=== PATIENT | female | born 1940 | race Caucasian/White ===

== ENCOUNTER 2021-04-09 00:52 | Observation (INO) ==
[2021-04-09] MEDS ORDERED: MECLIZINE 25 MG TABLET PO ONE ×2 (01:05→14:58)
--- NOTE | 2021-04-09 01:09 | Emergency Department Note ---
Fall HPI General Chief Complaint: Fall Stated Complaint: Fall Time Seen by Provider: 04/09/21 00:54 Source: patient and EMS Mode of arrival: EMS History of Present Illness HPI Narrative: Narrative: Presents to room T4 via EMS for evaluation of fall with possible head injury. The patient reports that she got up and had a fall. She denies passing out but states that she is dizzy and feels nauseated. She states after she fell she called the other room and called EMS initially for lift assist. She was noted to have elevated blood sugar and with her symptoms she requested transport to the hospital for further evaluation. She denies any headache or blurred vision. She denies any neck pain. She does report some pain in the lower back. She also reports some pain in the hips bilaterally. She denies any extremity trauma. No focal motor weakness or sensory numbness. She denies chest pain, palpitations or shortness of breath. No abdominal pain. She denies flank pain or dysuria. No fevers or chills. symptoms are constant. She denies any exacerbating or alleviating factors. Related Data Home Medications Medication Instructions Recorded Confirmed insulin glargine 30 unit SQ DAILY 02/26/17 07/16/19 levothyroxine 50 mcg PO DAILY 02/26/17 08/17/20 insulin lispro 0 unit SQ QHS 05/20/18 07/16/19 magnesium oxide [Magox 400] 400 mg PO QAM 05/20/18 06/18/18 multivitamin 1 each PO DAILY 05/20/18 07/16/19 potassium chloride [Klor-Con 10 meq PO QAM 05/20/18 06/18/18 Sprinkle] atorvastatin 80 mg PO QDAY 08/17/20 08/17/20 cefdinir 300 mg PO BID 08/17/20 08/17/20 cephalexin 500 mg PO BID 08/17/20 08/17/20 insulin degludec [Tresiba 30 unit SUBCUT QDAY 08/17/20 08/17/20 FlexTouch U-100] isosorbide mononitrate 10 mg PO QDAY 08/17/20 08/17/20 lisinopril 10 mg PO QDAY 08/17/20 08/17/20 omeprazole magnesium [Acid Inside Sales Administrator 20 mg PO QDAY 08/17/20 08/17/20 (omeprazole)] ticagrelor [Brilinta] 90 mg PO BID 08/17/20 08/17/20 Previous Rx's Medication Instructions Recorded methocarbamol 750 mg PO TIDP PRN #8 tab 10/10/18 valacyclovir 1,000 mg PO TID #21 tab 01/14/20 fluconazole 100 mg PO DAILY #5 tab 02/17/20 Allergies Allergy/AdvReac Type Severity Reaction Status Date / Time hydrocodone Allergy Nausea Verified 04/09/21 01:00 Review of Systems ROS ROS Narrative: Narrative: All systems ED: reviewed and negative except as stated. [facility] Narrative Patient History Narrative: Narrative: Medical/Surgical/Family History All Active Problems (Updated 04/09/21 @ 06:57 by Reagan Richards MD) Benign paroxysmal positional vertigo (Acute) Shingles of eyelid (Acute) Falls frequently (Acute) Hydrocephalus in adult (Acute) UTI (urinary tract infection) (Acute) Chest pain (Acute) Candidal UTI (urinary tract infection) (Acute) CAD (coronary artery disease) (Acute) Hypothyroidism (Acute) Acute alteration in mental status (Acute) Urogenital candidiasis (Acute) Bradycardia (Acute) Fall (Acute) Diabetes mellitus out of control (Acute) Lumbar contusion (Acute) Diabetes mellitus type 2, uncontrolled, with complications (Chronic) Hyperglycemia due to type 2 diabetes mellitus (Chronic) Non-adherence to medical treatment (Chronic) Self-care deficit for medication administration (Chronic) S/P PLANT ANATOMY TEACHER shunt (Chronic) CRF (chronic renal failure) (Chronic) Weakness (Acute) Hyperglycemia (Acute) Ketonuria (Acute) Medical History (Updated 04/09/21 @ 06:57 by Reagan Richards MD) Chest pain Confusion CRF (chronic renal failure) Diabetes mellitus type 2, uncontrolled, with complications Hyperglycemia due to type 2 diabetes mellitus Non-adherence to medical treatment Non-cardiac chest pain Self-care deficit for medication administration Supraventricular bigeminy Urinary tract infection Surgical History S/P PLANT ANATOMY TEACHER shunt Social History Smoking Status: Never smoker Exam Narrative Narrative: Narrative: General General appearance: Present alert and in no apparent distress Head Head: Present atraumatic, normocephalic and normal inspection Eye Eye: Present normal appearance, PERRL and EOMI; Absent conjunctival injection ENT ENT: Present normal exam and mucous membranes moist Neck Neck: Present normal inspection, full ROM and trachea midline; Absent tenderness Respiratory Respiratory: Present normal lung sounds bilaterally; Absent respiratory distress Cardiovascular Cardiovascular: Present regular rate, normal rhythm and normal heart sounds Adbominal Abdominal: Present soft; Absent distention, tenderness, guarding and rebound Extremities Extremities: Present normal inspection; Absent tenderness Back Back: Present normal inspection and tenderness (Mild diffuse tenderness to palpation in the lumbar spine without step-offs or point tenderness.) Neurological Neurological: Present alert, oriented X3 and CN II-XII intact; Absent motor sensory deficit Psychiatric Psychiatric: Present normal affect and normal mood Skin Skin: Present warm (WNL) and dry; Absent rash Course Vital Signs Vital signs: Vital Signs Temperature 97.1 F 04/09/21 00:53 Pulse Rate 69 04/09/21 00:53 Respiratory Rate 18 04/09/21 00:53 Blood Pressure 133/67 04/09/21 00:53 Pulse Oximetry (%) 95 04/09/21 00:53 Temperature 97.1 F 04/09/21 00:53 Pulse Rate 62 04/09/21 06:31 Respiratory Rate 18 04/09/21 00:53 Blood Pressure 109/41 04/09/21 06:31 Pulse Oximetry (%) 97 04/09/21 06:31 [facility] MDM Narrative Medical decision making narrative: Narrative: Patient presents via EMS for evaluation of fall. The patient does have a history of benign positional vertigo per her medical record. She also takes Antivert. She states today she became dizzy and this may have contributed to her fall. The patient is awake and alert and has no significant symptoms other than discomfort over her lower back and hips. The patient had a head CT which showed no evidence of intracranial trauma. X-rays of the chest, lumbar spine and pelvis showed no acute injuries. The patient does have an elevated blood sugar at 434. There is no signs of acidosis or significant ketosis. The patient's blood sugar was treated with IV fluids. She was also given an initial dose of subcu insulin however this did not significantly improve her blood sugar. She subsequent was given a dose of IV insulin and her blood sugar did improve to 282. The patient was also treated with a dose of oral Antivert and her dizziness initially resolved. Later in the emergency department course she did report some nausea and dizziness returning this was treated with IV Zofran. The patient has remained comfortable from that point forward. The patient does have a mild elevation of the BUN and creatinine however this does appear to be baseline per her medical record. I do have concerns the patient may not be able to adequately care for herself. We will keep her under observation in the emergency department until case management can review her living situation and determine whether she is safe to be discharged home or may benefit from placement. I have asked the oncoming physician to follow-up on her disposition. Lab Data Lab results reviewed: Yes I reviewed the patient's lab results. Result diagrams: 04/09/21 01:45 04/09/21 01:45 Labs: Lab Results 04/09/21 04/09/21 04/09/21 Range/Units 01:45 01:45 01:45 WBC 6.7 (4.5-11.0) K/mcL RBC 4.27 (4.00-5.20) M/mcL Hgb 12.2 (12.0-15.0) g/dL Hct 37.8 (36.0-48.0) % MCV 88.5 (80.0-100.0) fL MCH 28.6 (26.0-34.0) pg MCHC 32.3 (31.0-36.0) g/dL RDW 12.8 (11.5-14.5) % Plt Count 228 (140-440) K/mcL MPV 10.7 H (7.4-10.4) fL Neut % (Auto) 67.9 (38.0-78.0) % Lymph % (Auto) 22.0 (15.0-49.0) % [place] % (Auto) 5.8 (1.0-12.0) % Eos % (Auto) 3.3 (0.0-7.0) % Baso % (Auto) 1.0 (0.0-2.0) % Lymph # (Auto) 1.48 L (1.50-4.80) K/mcL [place] # (Auto) 0.39 (0.10-0.90) K/mcL Eos # (Auto) 0.22 (0.00-0.70) K/mcL Baso # (Auto) 0.07 (0.00-0.20) K/mcL Absolute Neutrophils 4.58 (1.80-8.00) K/mcL Sodium 132 L (133-145) mmol/L Potassium 3.4 (3.3-5.1) mmol/L Chloride 97 (96-108) mmol/L Carbon Dioxide 24 (22-30) mmol/L Anion Gap 11.0 (8.0-16.0) BUN 26 H (8-23) mg/dL Creatinine 1.4 H (0.6-1.1) mg/dL GFR Calculation 35 Glucose 434 H (70-105) mg/dL Calcium 9.2 (8.6-10.4) mg/dL Total Bilirubin 0.3 (0.1-1.0) mg/dL AST 13 (<32) U/L ALT 13 (<40) U/L Alkaline Phosphatase 129 H (39-117) U/L Troponin T < 0.01 (<0.03) ng/mL Total Protein 6.5 (5.9-8.4) gm/dL Albumin 3.8 (3.2-5.2) gm/dL Globulin 2.7 (2.2-3.7) gm/dL Albumin/Globulin Ratio 1.4 (1.0-2.3) Urine Color Urine Appearance (Clear) Urine pH (5.0-9.0) Ur Specific [place] (1.000-1.035) Urine Protein (Negative) mg/dL Urine Glucose (UA) (Negative) mg/dL Urine Ketones (Negative) mg/dL Urine Occult Blood (Negative) mg/dL Urine Nitrate (Negative) Urine Bilirubin (Negative) mg/dL Urine Urobilinogen mg/dL Ur Leukocyte Esterase (Negative) /ug Urine RBC (0-3) /hpf Urine WBC (0-4) /hpf Ur Squamous Epith Cells (0-4) /hpf Ur Transition Epith Cell (0-2) /hpf Urine Bacteria (0) /hpf Urine Mucus (None) /hpf Urine Yeast (Budding) (None) /hpf Ur Culture Indicated? 04/09/21 Range/Units 03:07 WBC (4.5-11.0) K/mcL RBC (4.00-5.20) M/mcL Hgb (12.0-15.0) g/dL Hct (36.0-48.0) % MCV (80.0-100.0) fL MCH (26.0-34.0) pg MCHC (31.0-36.0) g/dL RDW (11.5-14.5) % Plt Count (140-440) K/mcL MPV (7.4-10.4) fL Neut % (Auto) (38.0-78.0) % Lymph % (Auto) (15.0-49.0) % [place] % (Auto) (1.0-12.0) % Eos % (Auto) (0.0-7.0) % Baso % (Auto) (0.0-2.0) % Lymph # (Auto) (1.50-4.80) K/mcL [place] # (Auto) (0.10-0.90) K/mcL Eos # (Auto) (0.00-0.70) K/mcL Baso # (Auto) (0.00-0.20) K/mcL Absolute Neutrophils (1.80-8.00) K/mcL Sodium (133-145) mmol/L Potassium (3.3-5.1) mmol/L Chloride (96-108) mmol/L Carbon Dioxide (22-30) mmol/L Anion Gap (8.0-16.0) BUN (8-23) mg/dL Creatinine (0.6-1.1) mg/dL GFR Calculation Glucose (70-105) mg/dL Calcium (8.6-10.4) mg/dL Total Bilirubin (0.1-1.0) mg/dL AST (<32) U/L ALT (<40) U/L Alkaline Phosphatase (39-117) U/L Troponin T (<0.03) ng/mL Total Protein (5.9-8.4) gm/dL Albumin (3.2-5.2) gm/dL Globulin (2.2-3.7) gm/dL Albumin/Globulin Ratio (1.0-2.3) Urine Color Straw Urine Appearance Hazy A (Clear) Urine pH 5.0 (5.0-9.0) Ur Specific [place] 1.022 (1.000-1.035) Urine Protein Negative (Negative) mg/dL Urine Glucose (UA) >=500 A (Negative) mg/dL Urine Ketones Negative (Negative) mg/dL Urine Occult Blood Negative (Negative) mg/dL Urine Nitrate Negative (Negative) Urine Bilirubin Negative (Negative) mg/dL Urine Urobilinogen Negative mg/dL Ur Leukocyte Esterase 25 A (Negative) /ug Urine RBC 1 (0-3) /hpf Urine WBC 27 H (0-4) /hpf Ur Squamous Epith Cells 4 (0-4) /hpf Ur Transition Epith Cell < 1 (0-2) /hpf Urine Bacteria None (0) /hpf Urine Mucus Few A (None) /hpf Urine Yeast (Budding) Few A (None) /hpf Ur Culture Indicated? yes EKG Data EKG #1: EKG attestation: Yes I reviewed and interpreted this EKG., Yes There are no EKG findings of acute coronary syndrome and Yes This EKG will be read by airplane first officer EKG results narrative: Normal sinus rhythm, rate 68, left anterior fascicular block, no ectopy, no normal QRS Rhythm Strip Data Rhythm Strip Rate: 70 Interpretation: Normal sinus rhythm Pulse Oximetry Data Pulse Ox %: 97 Interpretation: Normal, room air Discharge Plan Patient/Caregiver Discharge Instructions Pt seen by DRESSMAKER HELPER/PA only: No Clinical Impression: Fall, Diabetes mellitus out of control, Lumbar contusion Patient Disposition: Still a Patient Follow up with: Kavya Farris MD [Primary Care Provider] - Prescriptions: No Action insulin glargine 1 UNIT/0.01 ML unit 30 unit SQ DAILY RF: 0 levothyroxine 50 MCG tablet 50 mcg PO DAILY RF: 0 multivitamin 1 EACH tablet 1 each PO DAILY RF: 0 potassium chloride [Klor-Con Sprinkle] 10 MEQ capsule, extended release 10 meq PO QAM RF: 0 magnesium oxide [MagOx] 400 MG tablet 400 mg PO QAM RF: 0 insulin lispro 1 UNIT/0.01 ML unit 0 unit SQ QHS RF: 0 methocarbamol 750 MG tablet 750 mg PO TIDP PRN (Reason: Spasms) Qty: 8 RF: 0 valacyclovir 1,000 MG tablet 1,000 mg PO TID Qty: 21 RF: 0 fluconazole 100 MG tablet 100 mg PO DAILY Qty: 5 RF: 0 cefdinir 300 mg Capsule 300 mg PO BID RF: 0 Tresiba FlexTouch U-100 100 unit/mL (3 mL) Insulin Pen 30 unit SUBCUT QDAY RF: 0 isosorbide mononitrate 10 mg Tablet 10 mg PO QDAY RF: 0 atorvastatin 80 mg Tablet 80 mg PO QDAY RF: 0 Brilinta 90 mg Tablet 90 mg PO BID RF: 0 omeprazole magnesium [Acid Inside Sales Administrator (omeprazole)] 20 mg Capsule,Delayed Release(Dr/Ec) 20 mg PO QDAY RF: 0 lisinopril 10 mg Tablet 10 mg PO QDAY RF: 0 cephalexin 500 mg Capsule 500 mg PO BID RF: 0
[2021-04-09] MEDS: 0.9 % SODIUM CHLORIDE 1,000 ML IV SCH ×3 (02:06→14:40)
[2021-04-09 02:27] LABS: Basophils # (Auto) 0.07 K/mcL (0.00-0.20); Eosinophils # (Auto) 0.22 K/mcL (0.00-0.70); Eosinophils % (Auto) 3.3 % (0.0-7.0); Hematocrit 37.8 % (36.0-48.0); Hemoglobin 12.2 g/dL (12.0-15.0); Lymphocytes # (Auto) 1.48 K/mcL (1.50-4.80); Mean Cell Volume 88.5 fL (80.0-100.0); Mean Corpuscular HGB Conc 32.3 g/dL (31.0-36.0); Mean Platelet Volume 10.7 fL (7.4-10.4); Monocytes # (Auto) 0.39 K/mcL (0.10-0.90); Monocytes % (Auto) 5.8 % (1.0-12.0); Neutrophils % (Auto) 67.9 % (38.0-78.0); Platelet Count 228 K/mcL (140-440); RBC 4.27 M/mcL (4.00-5.20); Red Cell Distribution Width 12.8 % (11.5-14.5); WBC 6.7 K/mcL (4.5-11.0)
--- NOTE | 2021-04-09 02:46 | XRay Report ---
CLINICAL INFORMATION: fall injury COMPARISON: None. FINDINGS: No fracture or other osseous abnormality identified. Mild degenerative change seen in both SI and hip joints. Multiple pelvic calcifications likely represent phleboliths and/or granulomas. The distal end of a BACK CLOSER shunt catheter seen over the right false pelvis. IMPRESSION: No fracture or other posttraumatic change Interpreted and Authenticated by: Darryl Silva 04/09/21
--- NOTE | 2021-04-09 02:48 | XRay Report ---
CLINICAL INFORMATION: Trauma-fall COMPARISON: 03/22/2021 TECHNIQUE: Portable FINDINGS: The heart size, mediastinum and pulmonary vessels are unremarkable. The lungs are clear. There are no effusions. The bones and soft tissues are within normal limits. IMPRESSION: Normal chest. Interpreted and Authenticated by: Darryl Silva 04/09/21
[2021-04-09 02:49] LABS: ALT/SGPT 13 U/L (<40); AST/SGOT 13 U/L (<32); Albumin 3.8 gm/dL (3.2-5.2); Albumin/Globulin Ratio 1.4 (1.0-2.3); Alkaline Phosphatase 129 U/L (39-117); Bilirubin,Total 0.3 mg/dL (0.1-1.0); Blood Urea Nitrogen 26 mg/dL (8-23); Calcium 9.2 mg/dL (8.6-10.4); Carbon Dioxide 24 mmol/L (22-30); Chloride 97 mmol/L (96-108); Globulin 2.7 gm/dL (2.2-3.7); Glomerular Filtration Rate 35; Glucose 434 mg/dL (70-105)
--- NOTE | 2021-04-09 02:50 | XRay Report ---
CLINICAL INFORMATION: fall injury COMPARISON: 10/10/2018 FINDINGS: Lumbar spine is normal in curvature and alignment. No fracture or other osseous abnormality appreciated. Severe L5-S1 degenerative disc and facet disease is unchanged. No significant soft tissue abnormality IMPRESSION: No fracture. Severe L5-S1 degenerative disc and facet disease that stable Interpreted and Authenticated by: Darryl Silva 04/09/21
[2021-04-09] MEDS ORDERED: INSULIN REGULAR, HUMAN 1 UNIT/0.01 ML UNIT SQ ONE (03:07)
[2021-04-09] MEDS ORDERED: NAPROXEN 250 MG TABLET PO ONE (03:10)
--- NOTE | 2021-04-09 03:10 | Cat Scan Report ---
CLINICAL INFORMATION: Trauma-fall COMPARISON: None. TECHNIQUE: 2.5 mm helical slices were obtained in the skull base to vertex. Following reconstruction, axial reformatted images were reviewed at bone and parenchymal windows. The exam was performed using radiation dose optimization techniques including, but not limited to, automated exposure control, adjustment of the mA and/or kV according to patient size and use of iterative reconstruction technique. FINDINGS: The ventricles, sulci, fissures, and cisterns are symmetrically enlarged consistent with moderate age-related atrophy-no change from previous exam. 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 No extra-axial hemorrhage. The SOFTWARE ENGINEER BACKEND shunt catheter enters the right frontal craniotomy extends through the left frontal lobe into the frontal horn of the right lateral ventricle-no change in position. No evidence of recurrent hydrocephalus. Moderate patchy chronic ischemic changes in the deep cerebral white matter are stable and expected for age. 6 mm remote lacunar infarct in the right caudate nucleus head, a few few punctate remote lacunar infarcts in basal ganglia and 11 mm remote lacunar infarct in the superior right cerebellar vermis are all stable. There is no intracerebral hemorrhage, mass effect or edema. Bone windows show no osseous abnormality. IMPRESSION: No intracerebral hemorrhage or posttraumatic change. Other chronic findings-stable Interpreted and Authenticated by: Darryl Silva 04/09/21
[2021-04-09 04:05] LABS: Appearance,Urine HAZY (Clear); Bilirubin,Urine Negative (Negative); Color,Urine STRAW; Culture Indicated,Urine yes; Glucose,Urine (UA) >=500 mg/dL (Negative); Ketones,Urine Negative (Negative); Leukocyte Esterase,Urine 25 /ug (Negative); Mucus,Urine FEW /hpf; Nitrate,Urine Negative (Negative); Protein,Urine Negative (Negative); Specific Gravity,Urine 1.022 (1.000-1.035); Urine Blood Negative (Negative); Urine Budding Yeast FEW /hpf; Urine RBC 1 /hpf (0-3); Urine Squamous Epithelial Cell 4 /hpf (0-4); Urine Transitional Epi Cells < 1 /hpf (0-2); Urine WBC 27 /hpf (0-4); Urobilinogen,Urine Negative
[2021-04-09] MEDS ORDERED: INSULIN REGULAR, HUMAN 1 UNIT/0.01 ML UNIT IV ONE (04:15)
[2021-04-09] MEDS ORDERED: ONDANSETRON 4 MG/2 ML VIAL IV ONE (05:28)
[2021-04-09] MEDS ORDERED: PROCHLORPERAZINE 10 MG/2 ML VIAL IV ONE ×2 (07:28→14:58)
[2021-04-09] MEDS ORDERED: morphine 2 MG/ML VIAL IV ONE (08:04)
[2021-04-09] MEDS ORDERED: cefTRIAXone 1 GM VIAL IV ONE (08:04)
[2021-04-09] MEDS ORDERED: diphenhydrAMINE 50 MG/ML VIAL IV ONE ×2 (08:04→14:58)
--- NOTE | 2021-04-09 08:12 | Emergency Department Note ---
Fall HPI General Chief Complaint: Fall Stated Complaint: Fall Time Seen by Provider: 04/09/21 00:54 Source: patient, family, EMS, RN notes reviewed and old records reviewed Mode of arrival: EMS Limitations: no limitations History of Present Illness HPI Narrative: Narrative: Complaint: fall Onset (ago): hour(s) Fall From: standing Fall Witnessed: no Place Fall Occurred: home Prolonged Down Time?: unclear Symptoms Prior to Fall: dizziness Context: tripped/slipped Location of injury: back Location of injury - extremities: Left: shoulder Severity: moderate Quality: aching Associated symptoms (after fall): Reports weakness and vertigo Related Data Home Medications Medication Instructions Recorded Confirmed insulin glargine 30 unit SQ DAILY 02/26/17 07/16/19 levothyroxine 50 mcg PO DAILY 02/26/17 08/17/20 insulin lispro 0 unit SQ QHS 05/20/18 07/16/19 magnesium oxide [Magox 400] 400 mg PO QAM 05/20/18 06/18/18 multivitamin 1 each PO DAILY 05/20/18 07/16/19 potassium chloride [Klor-Con 10 meq PO QAM 05/20/18 06/18/18 Sprinkle] atorvastatin 80 mg PO QDAY 08/17/20 08/17/20 cefdinir 300 mg PO BID 08/17/20 08/17/20 cephalexin 500 mg PO BID 08/17/20 08/17/20 insulin degludec [Tresiba 30 unit SUBCUT QDAY 08/17/20 08/17/20 FlexTouch U-100] isosorbide mononitrate 10 mg PO QDAY 08/17/20 08/17/20 lisinopril 10 mg PO QDAY 08/17/20 08/17/20 omeprazole magnesium [Acid Butcher Assistant 20 mg PO QDAY 08/17/20 08/17/20 (omeprazole)] ticagrelor [Brilinta] 90 mg PO BID 08/17/20 08/17/20 Previous Rx's Medication Instructions Recorded methocarbamol 750 mg PO TIDP PRN #8 tab 10/10/18 valacyclovir 1,000 mg PO TID #21 tab 01/14/20 fluconazole 100 mg PO DAILY #5 tab 02/17/20 cephalexin [Keflex] 750 mg PO Q12H #14 cap 04/09/21 Allergies Allergy/AdvReac Type Severity Reaction Status Date / Time hydrocodone Allergy Nausea Verified 04/09/21 01:00 Review of Systems ROS ROS Narrative: Narrative: All systems ED: reviewed and negative except as stated. [facility] Narrative Patient History Narrative: Narrative: Medical/Surgical/Family History All Active Problems (Updated 04/09/21 @ 14:51 by Rebel Isaacs MD) Benign paroxysmal positional vertigo (Acute) Shingles of eyelid (Acute) Falls frequently (Acute) Hydrocephalus in adult (Acute) UTI (urinary tract infection) (Acute) Chest pain (Acute) Candidal UTI (urinary tract infection) (Acute) CAD (coronary artery disease) (Acute) Hypothyroidism (Acute) Acute alteration in mental status (Acute) Urogenital candidiasis (Acute) Bradycardia (Acute) Fall (Acute) Diabetes mellitus out of control (Acute) Lumbar contusion (Acute) Acute UTI (urinary tract infection) (Acute) Syncope (Acute) Diabetes mellitus type 2, uncontrolled, with complications (Chronic) Hyperglycemia due to type 2 diabetes mellitus (Chronic) Non-adherence to medical treatment (Chronic) Self-care deficit for medication administration (Chronic) 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) CRF (chronic renal failure) (Chronic) Weakness (Acute) Hyperglycemia (Acute) Ketonuria (Acute) Medical History (Updated 04/09/21 @ 14:51 by Rebel Isaacs MD) Chest pain Confusion CRF (chronic renal failure) Diabetes mellitus type 2, uncontrolled, with complications Hyperglycemia due to type 2 diabetes mellitus Non-adherence to medical treatment Non-cardiac chest pain Self-care deficit for medication administration Supraventricular bigeminy Urinary tract infection Surgical History S/P ELECTRONIC DEVICE MONITOR shunt Social History Smoking Status: Never smoker Exam Narrative Narrative: Narrative: General Limitations: no limitations General appearance: Present alert, in distress, in no apparent distress and tearful Head Head: Present atraumatic and normocephalic Eye Eye: Present normal appearance, PERRL and EOMI ENT ENT: Present normal exam and mucous membranes dry Neck Neck: Present normal inspection and full ROM Chest Chest: Present normal inspection; Absent tenderness Respiratory Respiratory: Present normal lung sounds bilaterally; Absent respiratory distress Cardiovascular Cardiovascular: Present regular rate and normal rhythm; Absent systolic murmur Adbominal Abdominal: Present soft; Absent distention, tenderness, guarding and rebound Extremities Extremities: Present normal inspection, full ROM and tenderness (Left shoulder); Absent pedal edema and pretibial edema Back Back: Present normal inspection and L-S tenderness; Absent CVA tenderness (R) and CVA tenderness (L) Neurological Neurological: Present alert and oriented X3 Psychiatric Psychiatric: Present depressed and tearful Skin Skin: Present warm (WNL); Absent rash Course Reevaluation(s) Reevaluation #1: Plan was to discharge patient. She had declined placement in a group home. When patient stood up but she was unable to safely ambulate and she walked across the floor placed her hands on a counter and then when she attempted to walk back to bed patient fell to the floor hitting her head. Repeat CT scan of the head and neck is pending she will receive IV fluids, IV antivertigo medicines and will be admitted to the hospital for IV fluids and observation. Vital Signs Vital signs: Vital Signs Temperature 97.1 F 04/09/21 00:53 Pulse Rate 69 04/09/21 00:53 Respiratory Rate 18 04/09/21 00:53 Blood Pressure 133/67 04/09/21 00:53 Pulse Oximetry (%) 95 04/09/21 00:53 Temperature 97.1 F 04/09/21 00:53 Pulse Rate 67 04/09/21 14:52 Respiratory Rate 18 04/09/21 00:53 Blood Pressure 136/82 04/09/21 14:52 Pulse Oximetry (%) 98 04/09/21 14:52 [facility] MDM Narrative Medical decision making narrative: Narrative: CM evaluation for placement, Treat vertigo, Treat UTI, IVF and pain medications. Patient evaluated by case management and is declined placement opportunities. We will attempt to increase her home health care hours and have home health nurse to check in on her diabetes management. Lab Data Lab results reviewed: Yes I reviewed the patient's lab results. Result diagrams: 04/09/21 01:45 04/09/21 01:45 Labs: Lab Results 04/09/21 04/09/21 04/09/21 Range/Units 01:45 01:45 01:45 WBC 6.7 (4.5-11.0) K/mcL RBC 4.27 (4.00-5.20) M/mcL Hgb 12.2 (12.0-15.0) g/dL Hct 37.8 (36.0-48.0) % MCV 88.5 (80.0-100.0) fL MCH 28.6 (26.0-34.0) pg MCHC 32.3 (31.0-36.0) g/dL RDW 12.8 (11.5-14.5) % Plt Count 228 (140-440) K/mcL MPV 10.7 H (7.4-10.4) fL Neut % (Auto) 67.9 (38.0-78.0) % Lymph % (Auto) 22.0 (15.0-49.0) % [place] % (Auto) 5.8 (1.0-12.0) % Eos % (Auto) 3.3 (0.0-7.0) % Baso % (Auto) 1.0 (0.0-2.0) % Lymph # (Auto) 1.48 L (1.50-4.80) K/mcL [place] # (Auto) 0.39 (0.10-0.90) K/mcL Eos # (Auto) 0.22 (0.00-0.70) K/mcL Baso # (Auto) 0.07 (0.00-0.20) K/mcL Absolute Neutrophils 4.58 (1.80-8.00) K/mcL Sodium 132 L (133-145) mmol/L Potassium 3.4 (3.3-5.1) mmol/L Chloride 97 (96-108) mmol/L Carbon Dioxide 24 (22-30) mmol/L Anion Gap 11.0 (8.0-16.0) BUN 26 H (8-23) mg/dL Creatinine 1.4 H (0.6-1.1) mg/dL GFR Calculation 35 Glucose 434 H (70-105) mg/dL Calcium 9.2 (8.6-10.4) mg/dL Total Bilirubin 0.3 (0.1-1.0) mg/dL AST 13 (<32) U/L ALT 13 (<40) U/L Alkaline Phosphatase 129 H (39-117) U/L Troponin T < 0.01 (<0.03) ng/mL Total Protein 6.5 (5.9-8.4) gm/dL Albumin 3.8 (3.2-5.2) gm/dL Globulin 2.7 (2.2-3.7) gm/dL Albumin/Globulin Ratio 1.4 (1.0-2.3) Urine Color Urine Appearance (Clear) Urine pH (5.0-9.0) Ur Specific [place] (1.000-1.035) Urine Protein (Negative) mg/dL Urine Glucose (UA) (Negative) mg/dL Urine Ketones (Negative) mg/dL Urine Occult Blood (Negative) mg/dL Urine Nitrate (Negative) Urine Bilirubin (Negative) mg/dL Urine Urobilinogen mg/dL Ur Leukocyte Esterase (Negative) /ug Urine RBC (0-3) /hpf Urine WBC (0-4) /hpf Ur Squamous Epith Cells (0-4) /hpf Ur Transition Epith Cell (0-2) /hpf Urine Bacteria (0) /hpf Urine Mucus (None) /hpf Urine Yeast (Budding) (None) /hpf Ur Culture Indicated? 04/09/21 Range/Units 03:07 WBC (4.5-11.0) K/mcL RBC (4.00-5.20) M/mcL Hgb (12.0-15.0) g/dL Hct (36.0-48.0) % MCV (80.0-100.0) fL MCH (26.0-34.0) pg MCHC (31.0-36.0) g/dL RDW (11.5-14.5) % Plt Count (140-440) K/mcL MPV (7.4-10.4) fL Neut % (Auto) (38.0-78.0) % Lymph % (Auto) (15.0-49.0) % [place] % (Auto) (1.0-12.0) % Eos % (Auto) (0.0-7.0) % Baso % (Auto) (0.0-2.0) % Lymph # (Auto) (1.50-4.80) K/mcL [place] # (Auto) (0.10-0.90) K/mcL Eos # (Auto) (0.00-0.70) K/mcL Baso # (Auto) (0.00-0.20) K/mcL Absolute Neutrophils (1.80-8.00) K/mcL Sodium (133-145) mmol/L Potassium (3.3-5.1) mmol/L Chloride (96-108) mmol/L Carbon Dioxide (22-30) mmol/L Anion Gap (8.0-16.0) BUN (8-23) mg/dL Creatinine (0.6-1.1) mg/dL GFR Calculation Glucose (70-105) mg/dL Calcium (8.6-10.4) mg/dL Total Bilirubin (0.1-1.0) mg/dL AST (<32) U/L ALT (<40) U/L Alkaline Phosphatase (39-117) U/L Troponin T (<0.03) ng/mL Total Protein (5.9-8.4) gm/dL Albumin (3.2-5.2) gm/dL Globulin (2.2-3.7) gm/dL Albumin/Globulin Ratio (1.0-2.3) Urine Color Straw Urine Appearance Hazy A (Clear) Urine pH 5.0 (5.0-9.0) Ur Specific [place] 1.022 (1.000-1.035) Urine Protein Negative (Negative) mg/dL Urine Glucose (UA) >=500 A (Negative) mg/dL Urine Ketones Negative (Negative) mg/dL Urine Occult Blood Negative (Negative) mg/dL Urine Nitrate Negative (Negative) Urine Bilirubin Negative (Negative) mg/dL Urine Urobilinogen Negative mg/dL Ur Leukocyte Esterase 25 A (Negative) /ug Urine RBC 1 (0-3) /hpf Urine WBC 27 H (0-4) /hpf Ur Squamous Epith Cells 4 (0-4) /hpf Ur Transition Epith Cell < 1 (0-2) /hpf Urine Bacteria None (0) /hpf Urine Mucus Few A (None) /hpf Urine Yeast (Budding) Few A (None) /hpf Ur Culture Indicated? yes Radiology Data Radiology results reviewed: Yes I reviewed the patient's radiology results. Pulse Oximetry Data Pulse Ox %: 97 Interpretation: WNL Discharge Plan Patient/Caregiver Discharge Instructions Pt seen by EM PHYSICIAN/PA only: No Clinical Impression: Fall, Diabetes mellitus out of control, Lumbar contusion, Acute UTI (urinary tract infection) Syncope Qualifiers: Syncope type: unspecified Qualified Code(s): R55 - Syncope and collapse Patient Disposition: Xfer As Inpt ([facility]) Follow up with: Kavya Farris MD [Primary Care Provider] - Prescriptions: New cephalexin [Keflex] 750 mg capsule 750 mg PO Q12H Qty: 14 RF: 0 No Action insulin glargine 1 UNIT/0.01 ML unit 30 unit SQ DAILY RF: 0 levothyroxine 50 MCG tablet 50 mcg PO DAILY RF: 0 multivitamin 1 EACH tablet 1 each PO DAILY RF: 0 potassium chloride [Klor-Con Sprinkle] 10 MEQ capsule, extended release 10 meq PO QAM RF: 0 magnesium oxide [MagOx] 400 MG tablet 400 mg PO QAM RF: 0 insulin lispro 1 UNIT/0.01 ML unit 0 unit SQ QHS RF: 0 methocarbamol 750 MG tablet 750 mg PO TIDP PRN (Reason: Spasms) Qty: 8 RF: 0 valacyclovir 1,000 MG tablet 1,000 mg PO TID Qty: 21 RF: 0 fluconazole 100 MG tablet 100 mg PO DAILY Qty: 5 RF: 0 cefdinir 300 mg Capsule 300 mg PO BID RF: 0 Tresiba FlexTouch U-100 100 unit/mL (3 mL) Insulin Pen 30 unit SUBCUT QDAY RF: 0 isosorbide mononitrate 10 mg Tablet 10 mg PO QDAY RF: 0 atorvastatin 80 mg Tablet 80 mg PO QDAY RF: 0 Brilinta 90 mg Tablet 90 mg PO BID RF: 0 omeprazole magnesium [Acid Butcher Assistant (omeprazole)] 20 mg Capsule,Delayed Release(Dr/Ec) 20 mg PO QDAY RF: 0 lisinopril 10 mg Tablet 10 mg PO QDAY RF: 0 cephalexin 500 mg Capsule 500 mg PO BID RF: 0
[2021-04-09] MEDS ORDERED: 0.9 % SODIUM CHLORIDE 1,000 ML IV SCH ×2 (15:00→18:46)
--- NOTE | 2021-04-09 15:15 | Cat Scan Report ---
CLINICAL INFORMATION: , COMPARISON: 04/09/2021 0127 hours. TECHNIQUE: 2.5 mm helical slices were obtained in the skull base to vertex. Following reconstruction, axial reformatted images were reviewed at bone and parenchymal windows. The exam was performed using radiation dose optimization techniques including, but not limited to, automated exposure control, adjustment of the mA and/or kV according to patient size and use of iterative reconstruction technique. FINDINGS: The ventricles, sulci, fissures, and cisterns are symmetrically enlarged consistent with moderate age-related atrophy-no change from previous exam. 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 No extra-axial hemorrhage. The EXTRUDING PRESS OPERATOR shunt catheter enters the right frontal craniotomy extends through the left frontal lobe into the frontal horn of the right lateral ventricle-no change in position. No evidence of recurrent hydrocephalus. Moderate patchy chronic ischemic changes in the deep cerebral white matter are stable and expected for age. 6 mm remote lacunar infarct in the right caudate nucleus head, a few few punctate remote lacunar infarcts in basal ganglia and 11 mm remote lacunar infarct in the superior right cerebellar vermis are all stable. There is no intracerebral hemorrhage, mass effect or edema. Bone windows show no osseous abnormality. IMPRESSION: No intracerebral hemorrhage or posttraumatic change. Other chronic findings-stable Interpreted and Authenticated by: Darryl Silva 04/09/21
--- NOTE | 2021-04-09 15:18 | Cat Scan Report ---
CLINICAL INFORMATION: Trauma COMPARISON: None. TECHNIQUE: 0.625 mm helical slices were obtained from the skull base through the superior T2 end plate, and following reconstruction, 2.5 mm sagittal, coronal and axial reformations were then processed. The exam was reviewed at bone and soft tissue windows. The exam was performed using radiation dose optimization techniques including, but not limited to, automated exposure control, adjustment of the mA and/or kV according to patient size and use of iterative reconstruction technique. FINDINGS: The cervical spine is normal in curvature and alignment. No fracture is unified. Soft tissues are normal. The C2-3 C4 C4-5 disc levels are normal. At C5-6 mild broad disc spur complex results in mild central canal left IV foraminal narrowing At C6-7 mild broad disc spur complex results in mild central canal and bilateral lateral recess narrowing C7-T1 disc level is normal IMPRESSION: No fracture or posttraumatic change. Multilevel degeneration Interpreted and Authenticated by: Darryl Silva 04/09/21
--- NOTE | 2021-04-09 18:36 | Internal Med History&Physical ---
HPI History of Present Illness Patient information: Note initiated : 04/09/21 at 6:24 pm Service Date, if different from initiated Date: [] Patient: Mel Allison a 80 y/o F admitted on for Fall. Chief Complaint: [] History of present illness: Ms. Allison is a 80 year old female with multiple medical conditions including DMII, CAD, CVA, hypothyroidism, dementia hx MOTORCYLES FINAL INSPECTOR shunt, hx of candidat glabrata UTI who presented to the ED after a mechanical fall at home, she had a thorough evaluation in the ED with chest xray, CT head, lumbar spine xray, pelvis xray, cervical spine xray that did not show any acute injuries. She had another fall in the ED and the hospitalists were consulted for admission. The The patient is generally weak on exam and appears malnourished. She denies any pain from the fall and said she tripped on her way to the bath room when she fell at home. She currently lives alone with her dog. In the ED the patient was mildy orthostatic, UA was positive for leukocyte esterase, no bacteria but positive for few yeast. The patient was started on IV fluid and admitted to observation. Constitutional: no fever, fatigue, or weight loss Eyes: no vision changes or pain Cardiovascular: no chest pain, no palpitations Respiratory: no cough or dyspnea Gastrointestinal: no abdominal pain, no nausea, vomiting, or diarrhea Genitourinary: no dysuria or difficulty voiding Musculoskeletal: positive for falls, no arthralgia or myalgia Integumentary: no skin lesion or wound Neurological: no focal weakness or numbness Psychiatric: no anxiety or depression Head: Atraumatic, normal inspection. Eyes: normal appearance, no scleral icterus. Neck: full ROM Respiratory: no respiratory distress. Cardiovascular: normal rate and rhythm, S1, S2. GI/Abdominal: soft, nontender, no guarding. Extremities: full range of motion, nontender. Neurological: CN II-XII intact, intact motor, intact sensation. Psychiatric: impaired memory Skin: warm, normal color PFSH PFSH All Active Problems (Updated 04/09/21 @ 14:51 by Rebel Isaacs MD) Benign paroxysmal positional vertigo (Acute) Shingles of eyelid (Acute) Falls frequently (Acute) Hydrocephalus in adult (Acute) UTI (urinary tract infection) (Acute) Chest pain (Acute) Candidal UTI (urinary tract infection) (Acute) CAD (coronary artery disease) (Acute) Hypothyroidism (Acute) Acute alteration in mental status (Acute) Urogenital candidiasis (Acute) Bradycardia (Acute) Fall (Acute) Diabetes mellitus out of control (Acute) Lumbar contusion (Acute) Acute UTI (urinary tract infection) (Acute) Syncope (Acute) Diabetes mellitus type 2, uncontrolled, with complications (Chronic) Hyperglycemia due to type 2 diabetes mellitus (Chronic) Non-adherence to medical treatment (Chronic) Self-care deficit for medication administration (Chronic) S/P MOTORCYLES FINAL INSPECTOR shunt (Chronic) CRF (chronic renal failure) (Chronic) Weakness (Acute) Hyperglycemia (Acute) Ketonuria (Acute) Medical History (Updated 04/09/21 @ 14:51 by Rebel Isaacs MD) Chest pain Confusion CRF (chronic renal failure) Diabetes mellitus type 2, uncontrolled, with complications Hyperglycemia due to type 2 diabetes mellitus Non-adherence to medical treatment Non-cardiac chest pain Self-care deficit for medication administration Supraventricular bigeminy Urinary tract infection Surgical History S/P MOTORCYLES FINAL INSPECTOR shunt MEDS/ALLERGIES Home Medications and Allergies Home Medications Medication Instructions Recorded Confirmed Type insulin glargine 30 unit SQ DAILY 02/26/17 07/16/19 History levothyroxine 50 mcg PO DAILY 02/26/17 08/17/20 History insulin lispro 0 unit SQ QHS 05/20/18 07/16/19 History magnesium oxide [Magox 400] 400 mg PO QAM 05/20/18 06/18/18 History multivitamin 1 each PO DAILY 05/20/18 07/16/19 History potassium chloride [Klor-Con 10 meq PO QAM 05/20/18 06/18/18 History Sprinkle] methocarbamol 750 mg PO TIDP PRN #8 tab 10/10/18 Rx valacyclovir 1,000 mg PO TID #21 tab 01/14/20 Rx fluconazole 100 mg PO DAILY #5 tab 02/17/20 Rx atorvastatin 80 mg PO QDAY 08/17/20 08/17/20 History insulin degludec [Tresiba 30 unit SUBCUT QDAY 08/17/20 08/17/20 History FlexTouch U-100] isosorbide mononitrate 10 mg PO QDAY 08/17/20 08/17/20 History lisinopril 10 mg PO QDAY 08/17/20 08/17/20 History omeprazole magnesium [Acid Efficiency Analyst 20 mg PO QDAY 08/17/20 08/17/20 History (omeprazole)] ticagrelor [Brilinta] 90 mg PO BID 08/17/20 08/17/20 History cephalexin [Keflex] 750 mg PO Q12H #14 cap 04/09/21 Rx Allergies Allergy/AdvReac Type Severity Reaction Status Date / Time hydrocodone Allergy Nausea Verified 04/09/21 01:00 EXAM Constitutional Vitals: Temp Pulse Resp BP Pulse Ox 97.1 F 67 18 107/45 95 04/09/21 00:53 04/09/21 17:42 04/09/21 00:53 04/09/21 17:42 04/09/21 17:42 DATA Data Completed and Pending Labs: Labs from last 24 hours 04/09/21 04/09/21 04/09/21 03:07 01:45 01:45 WBC RBC Hgb Hct MCV MCH MCHC RDW Plt Count MPV Neut % (Auto) Lymph % (Auto) [place] % (Auto) Eos % (Auto) Baso % (Auto) Lymph # (Auto) [place] # (Auto) Eos # (Auto) Baso # (Auto) Absolute Neutrophils Sodium 132 L Potassium 3.4 Chloride 97 Carbon Dioxide 24 Anion Gap 11.0 BUN 26 H Creatinine 1.4 H GFR Calculation 35 Glucose 434 H Calcium 9.2 Total Bilirubin 0.3 AST 13 ALT 13 Alkaline Phosphatase 129 H Troponin T < 0.01 Total Protein 6.5 Albumin 3.8 Globulin 2.7 Albumin/Globulin Ratio 1.4 Urine Color Straw Urine Appearance Hazy A Urine pH 5.0 Ur Specific [place] 1.022 Urine Protein Negative Urine Glucose (UA) >=500 A Urine Ketones Negative Urine Occult Blood Negative Urine Nitrate Negative Urine Bilirubin Negative Urine Urobilinogen Negative Ur Leukocyte Esterase 25 A Urine RBC 1 Urine WBC 27 H Ur Squamous Epith Cells 4 Ur Transition Epith Cell < 1 Urine Bacteria None Urine Mucus Few A Urine Yeast (Budding) Few A Ur Culture Indicated? yes 04/09/21 01:45 WBC 6.7 RBC 4.27 Hgb 12.2 Hct 37.8 MCV 88.5 MCH 28.6 MCHC 32.3 RDW 12.8 Plt Count 228 MPV 10.7 H Neut % (Auto) 67.9 Lymph % (Auto) 22.0 [place] % (Auto) 5.8 Eos % (Auto) 3.3 Baso % (Auto) 1.0 Lymph # (Auto) 1.48 L [place] # (Auto) 0.39 Eos # (Auto) 0.22 Baso # (Auto) 0.07 Absolute Neutrophils 4.58 Sodium Potassium Chloride Carbon Dioxide Anion Gap BUN Creatinine GFR Calculation Glucose Calcium Total Bilirubin AST ALT Alkaline Phosphatase Troponin T Total Protein Albumin Globulin Albumin/Globulin Ratio Urine Color Urine Appearance Urine pH Ur Specific [place] Urine Protein Urine Glucose (UA) Urine Ketones Urine Occult Blood Urine Nitrate Urine Bilirubin Urine Urobilinogen Ur Leukocyte Esterase Urine RBC Urine WBC Ur Squamous Epith Cells Ur Transition Epith Cell Urine Bacteria Urine Mucus Urine Yeast (Budding) Ur Culture Indicated? A/P Narrative A/P Narrative: Assessment: 80 year old female admitted to observation after multiple mechanical falls, no injuries sustained. #Recurrent mechanical falls #Generalized weakness #Possible funguria vs bacteria vs UTI? #Diabetes mellitus type II-poorly controlled #Chronic kidney disease stage IIIb-stable #Essential hypertension #Coronary artery disease #GERD #Hx of hood in urine #Hx CVA #Hx MOTORCYLES FINAL INSPECTOR shunt-stable on CT head #Cognitive impairment Plan -IV fluid -Lantus and SSI-med -Check TSH and Vitamin D -Continue essential home medications. -Follow urine culture-consider antimicrobial therapy. -PT/OT evaluations -DVT ppx: ambulatory -Code status: Full -Disposition: SNF vs home with home health Time Spent With Patient Time: Total time spent is greater than 50% in coordination of care (as documented) at patient's floor/unit and/or counseling patient:
[2021-04-09] MEDS ORDERED: cefTRIAXone 1 GM VIAL IV SCH (18:45)
[2021-04-09] MEDS ORDERED: DEXTROSE 31 GM ORAL.SUSP PO PRN (18:46)
[2021-04-09] MEDS ORDERED: DEXTROSE 50% 50 ML VIAL IV PRN (18:46)
[2021-04-09] MEDS ORDERED: ONDANSETRON 4 MG/2 ML VIAL IV PRN (18:46)
[2021-04-09] MEDS ORDERED: METHOCARBAMOL 750 MG TABLET PO PRN (18:46)
[2021-04-09] MEDS ORDERED: ACETAMINOPHEN 325 MG TABLET PO PRN (18:46)
[2021-04-09] MEDS ORDERED: VALACYCLOVIR 1000 MG PO SCH (21:00)
[2021-04-09] MEDS ORDERED: TICAGRELOR 90 MG PO SCH (21:00)
[2021-04-09] MEDS: SENNOSIDES 1 TABLET PO SCH (22:40)
[2021-04-09] MEDS: DOCUSATE SODIUM 100 MG CAPSULE PO SCH (22:40)
[2021-04-09] MEDS: INSULIN LISPRO 1 UNIT/0.01 ML UNIT SQ SCH (22:40)
[2021-04-09] MEDS: 0.9 % SODIUM CHLORIDE 10 ML SYRINGE IV SCH (22:41)
[2021-04-10] MEDS: 0.9 % SODIUM CHLORIDE 10 ML SYRINGE IV SCH ×3 (04:32→20:15)
[2021-04-10 08:08] LABS: Thyroid Stimulating Hormone 3.03 uIU/mL (0.27-5.01)
[2021-04-10] MEDS: MULTIVIT,THER IRON,CA,FA & MIN 1 TABLET PO SCH (08:26)
[2021-04-10] MEDS: DOCUSATE SODIUM 100 MG CAPSULE PO SCH ×2 (08:26→20:14)
[2021-04-10] MEDS: OMEPRAZOLE 20 MG CAPSULE PO SCH (08:26)
[2021-04-10] MEDS: ATORVASTATIN 40 MG TABLET PO SCH (08:26)
[2021-04-10] MEDS: POTASSIUM CHLORIDE 10 MEQ TABLET PO SCH (08:26)
[2021-04-10] MEDS: MAGNESIUM OXIDE 400 MG TABLET PO SCH (08:26)
[2021-04-10] MEDS: LEVOTHYROXINE 50 MCG TABLET PO SCH (08:27)
[2021-04-10] MEDS: LISINOPRIL 10 MG TABLET PO SCH (08:27)
[2021-04-10] MEDS: ISOSORBIDE MONONITRATE 20 MG TABLET PO SCH (08:28)
[2021-04-10] MEDS: INSULIN LISPRO 1 UNIT/0.01 ML UNIT SQ SCH ×4 (08:29→20:15)
[2021-04-10] MEDS: INSULIN GLARGINE, HUMAN 1 UNIT/0.01 ML SQ SCH (08:30)
[2021-04-10 09:31] LABS: Estimated Average Glucose(eAG) 338 mg/dL; Hemoglobin A1C 13.4 % Hgb (4.0-6.0)
[2021-04-10 09:47] LABS: Vitamin D 25 Hydroxy-SO 29.86 ng/mL (>30.00)
--- NOTE | 2021-04-10 17:12 | Internal Med Progress Note ---
SUBJECTIVE Subjective Patient information: Note initiated : 04/10/21 at 5:09 pm Service Date, if different from initiated Date: [] Patient: Mel Allison 80 y/o F admitted on 04/09/21 for Fall. Chief Complaint: [] Interval history: Ms. 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 She had another fall in the ED and the hospitalists were consulted for admission. The The patient is generally weak on exam and appears malnourished. She denies any pain from the fall and said she tripped on her way to the bathroom when she fell at home. She currently lives alone with her dog. In the ED the patient was mildy orthostatic, UA was positive for leukocyte esterase, no bacteria but positive for few yeast, the patient denies dysuria or increased frequency that are typical for her when she gets a UTI. The patient was started on IV fluid and admitted to observation. 04/10-feels well, good appetite, was able to work with PT today. Discontinued IV fluid, vitamin D low so started supplementation, TSH normal. Head: Atraumatic, normal inspection. Eyes: normal appearance, no scleral icterus. Neck: full ROM Respiratory: no respiratory distress. Cardiovascular: normal rate and rhythm, S1, S2. GI/Abdominal: soft, nontender, no guarding. Extremities: full range of motion, nontender. Neurological: CN II-XII intact, intact motor, intact sensation. Psychiatric: impaired memory Skin: warm, normal color Constitutional Vitals: Vital Signs Temp Pulse Resp BP Pulse Ox 98.9 F 85 16 121/65 96 04/10/21 16:00 04/10/21 16:00 04/10/21 16:00 04/10/21 16:00 04/10/21 16:00 Period Temp Pulse Resp BP Sys/Malone Pulse Ox Last 24 Hr 97.5 F-98.9 F 61-85 16-18 107-147/45-72 95-98 Intake and Output 05/04/10/21 04/10/21 05:59 13:59 21:59 Intake Total 100 180 Output Total 350 750 1 Balance -250 570 -1 Intake & Output: Intake & Output 04/10/21 04/10/21 04/10/21 05:59 13:59 21:59 Intake Total 100 180 Output Total 350 750 1 Balance -250 570 -1 Intake: Oral 100 180 Output: Urine Catheter Amount 150 Void Amount 350 600 # of times incontinent of urine 1 Other: Meal egg salad, fruit cup Lunch Percent of Meal Consumed 100% 75% Feeding Ability Independent Urine Appearance Cloudy Cloudy Urine Color Bright Yellow Bright Yellow Urine Odor Foul Stool Size Moderate Stool Color Brown Stool Consistency Liquid # Voids 1 # Bowel Movements 1 # of times incontinent of 1 Bowels OBJ DATA Labs CBC & Chem 7: 04/09/21 01:45 04/09/21 01:45 Labs: Abnormal Lab Results 04/10/21 04/10/21 04/09/21 05:31 05:30 03:07 MPV Lymph # (Auto) Sodium BUN Creatinine Glucose Hemoglobin A1c 13.4 H Alkaline Phosphatase 25-OH Vitamin D Total 29.86 L Urine Appearance Hazy A Urine Glucose (UA) >=500 A Ur Leukocyte Esterase 25 A Urine WBC 27 H Urine Mucus Few A Urine Yeast (Budding) Few A 04/09/21 04/09/21 01:45 01:45 MPV 10.7 H Lymph # (Auto) 1.48 L Sodium 132 L BUN 26 H Creatinine 1.4 H Glucose 434 H Hemoglobin A1c Alkaline Phosphatase 129 H 25-OH Vitamin D Total Urine Appearance Urine Glucose (UA) Ur Leukocyte Esterase Urine WBC Urine Mucus Urine Yeast (Budding) Meds: Medications Acetaminophen (Acetaminophen 325 Mg Tablet) 650 mg PO Q6HP PRN; Protocol PRN Reason: Per Pain Protocol/Fever > 101 Atorvastatin Calcium (Atorvastatin 40 Mg Tablet) 80 mg PO QDAY [facility] Last Admin: 04/10/21 08:26 Dose: 80 mg Documented by: Dextrose (Dextrose 50% 50 Ml Vial) 0 ml IV UD PRN PRN Reason: Hypoglycemia Diagnostic Test (Pha) (Accu-Chek 1 Each Strip) 1 each FS ACHS [facility] Last Admin: 04/10/21 11:05 Dose: 1 each Documented by: Docusate Sodium (Docusate Sodium 100 Mg Capsule) 100 mg PO BID [facility] Last Admin: 04/10/21 08:26 Dose: 100 mg Documented by: Glucose (Dextrose 31 Gm Oral.Susp) 15 gm PO PRN PRN PRN Reason: Hypoglycemia Insulin Glargine (Insulin Glargine, Human 1 Unit/0.01 Ml) 30 unit SQ DAILY [facility] Last Admin: 04/10/21 08:30 Dose: 30 unit Documented by: Insulin Human Lispro (Insulin Lispro 1 Unit/0.01 Ml Unit) 0 unit SQ [facility]; Protocol Last Admin: 04/10/21 13:40 Dose: 8 unit Documented by: Iron Carb/Multivit/Planting Material Unloader/Folic Acid (Multivit,Ther Iron,Ca,Fa & Min 1 Tablet) 1 tab PO DAILY [facility] Last Admin: 04/10/21 08:26 Dose: 1 tab Documented by: Isosorbide Mononitrate (Isosorbide Mononitrate 20 Mg Tablet) 10 mg PO QDAY [facility] Last Admin: 04/10/21 08:28 Dose: 10 mg Documented by: Levothyroxine Sodium (Levothyroxine 50 Mcg Tablet) 50 mcg PO DAILY [facility] Last Admin: 04/10/21 08:27 Dose: 50 mcg Documented by: Lisinopril (Lisinopril 10 Mg Tablet) 10 mg PO QDAY [facility] Last Admin: 04/10/21 08:27 Dose: 10 mg Documented by: Magnesium Oxide (Magnesium Oxide 400 Mg Tablet) 400 mg PO QAM [facility] Last Admin: 04/10/21 08:26 Dose: 400 mg Documented by: Methocarbamol (Methocarbamol 750 Mg Tablet) 750 mg PO TIDP PRN PRN Reason: Spasms Omeprazole (Omeprazole 20 Mg Capsule) 20 mg PO ACB [facility] Last Admin: 04/10/21 08:26 Dose: 20 mg Documented by: Ondansetron HCl (Ondansetron 4 Mg/2 Ml Vial) 4 mg IV Q6HP PRN PRN Reason: Nausea And Vomiting Ticagrelor [Brilinta (] 90 Mg Tablet) 1 dose PO BID [facility] Last Admin: 04/10/21 09:06 Dose: Not Given Documented by: Potassium Chloride (Potassium Chloride 10 Meq Tablet) 10 meq PO QAMCC [facility] Last Admin: 04/10/21 08:26 Dose: 10 meq Documented by: Senna (Sennosides 1 Tablet) 2 tab PO HS [facility] Last Admin: 04/09/21 22:40 Dose: 2 tab Documented by: Sodium Chloride (0.9 % Sodium Chloride 10 Ml Syringe) 10 ml IV Q8 [facility] Last Admin: 04/10/21 13:32 Dose: Not Given Documented by: Vitamin D (Vitamin D3 1,000 Unit Tablet) 2,000 unit PO DAILY [facility] A/P Narrative A/P Narrative: Assessment: 80 year old female admitted to observation after multiple mechanical falls, no injuries sustained. #Recurrent mechanical falls #Generalized weakness #Possible funguria vs bacteruria #Diabetes mellitus type II-poorly controlled #Chronic kidney disease stage IIIb-stable #Essential hypertension #Coronary artery disease #GERD #Hx of hood in urine #Hx CVA #Hx CONVERSION DEVELOPER shunt-stable on CT head #Cognitive impairment Plan -Discontinue IV fluid -Lantus and SSI-high -Vitamin D supplement -Continue essential home medications. -Follow urine culture. -PT/OT evaluations -DVT ppx: ambulatory -Code status: Full -Disposition: SNF vs home with home health Time Spent With Patient Time: Total time spent is greater than 50% in coordination of care (as documented) at patient's floor/unit and/or counseling patient: QUALITY VTE Deep Vein Thrombosis/Pulmonary Embolism Present on Admission: No
[2021-04-10] MEDS ORDERED: DEXTROSE 31 GM ORAL.SUSP PO PRN (17:28)
[2021-04-10] MEDS ORDERED: DEXTROSE 50% 50 ML VIAL IV PRN (17:28)
[2021-04-10] MEDS ORDERED: INSULIN LISPRO 1 UNIT/0.01 ML UNIT SQ ONE (17:50)
[2021-04-10] MEDS: SENNOSIDES 1 TABLET PO SCH (20:15)
[2021-04-11] MEDS: 0.9 % SODIUM CHLORIDE 10 ML SYRINGE IV SCH (06:03)
[2021-04-11] MEDS: OMEPRAZOLE 20 MG CAPSULE PO SCH (06:47)
[2021-04-11] MEDS: LEVOTHYROXINE 50 MCG TABLET PO SCH (07:36)
[2021-04-11] MEDS: INSULIN LISPRO 1 UNIT/0.01 ML UNIT SQ SCH ×2 (07:39→11:52)
[2021-04-11] MEDS ORDERED: VITAMIN D3 1,000 UNIT TABLET PO SCH (09:00)
[2021-04-11] MEDS: INSULIN GLARGINE, HUMAN 1 UNIT/0.01 ML SQ SCH (10:13)
[2021-04-11] MEDS: ISOSORBIDE MONONITRATE 20 MG TABLET PO SCH (10:14)
[2021-04-11] MEDS: MULTIVIT,THER IRON,CA,FA & MIN 1 TABLET PO SCH (10:14)
[2021-04-11] MEDS: MAGNESIUM OXIDE 400 MG TABLET PO SCH (10:15)
[2021-04-11] MEDS: ATORVASTATIN 40 MG TABLET PO SCH (10:15)
[2021-04-11] MEDS: POTASSIUM CHLORIDE 10 MEQ TABLET PO SCH (10:15)
[2021-04-11] MEDS: LISINOPRIL 10 MG TABLET PO SCH (10:15)
[2021-04-11] MEDS: DOCUSATE SODIUM 100 MG CAPSULE PO SCH (10:24)
--- NOTE | 2021-04-11 12:12 | Discharge Summary ---
Discharge Provider Provider Patient information: Note initiated : 04/11/21 at 12:10 pm Service Date, if different from initiated Date: [] Patient: Mel Allison 80 y/o F admitted on 04/09/21 for Fall. Chief Complaint: [] Date of admission: 04/09/21 18:37 Discharge date: 04/11/21 Primary care physician: Kavya Farris Consults: 04/09/21 Consult to Physician [CONS] Stat Comment: Consulting Provider: Nikhil Huynh Reason For Exam: Physician to Consult Discharge Meds Discharge Medications Home Medications levothyroxine 50 mcg PO DAILY 02/26/17 [History Confirmed 04/09/21 Last Taken 04/08/21 07:00] magnesium oxide [MagOx] 400 mg PO QAM 05/20/18 [History Confirmed 04/09/21 Last Taken 04/08/21 07:00] Brilinta 90 mg PO BID 08/17/20 [History Confirmed 04/09/21 Last Taken 04/08/21 07:00] atorvastatin 80 mg PO QDAY 08/17/20 [History Confirmed 04/09/21 Last Taken 04/08/21 07:00] isosorbide mononitrate 10 mg PO QDAY 08/17/20 [History Confirmed 04/09/21 Last Taken 04/08/21 07:00] lisinopril 10 mg PO QDAY 08/17/20 [History Confirmed 04/09/21 Last Taken 04/08/21 07:00] omeprazole magnesium [Acid Application Architect (omeprazole)] 20 mg PO QDAY 08/17/20 [History Confirmed 04/09/21 Last Taken 04/08/21 07:00] Tresiba FlexTouch U-100 40 unit SUBCUT DAILY 04/09/21 [History Confirmed 04/09/21 Last Taken Unknown] aspirin 81 mg PO DAILY 04/09/21 [History Confirmed 04/09/21 Last Taken 04/08/21 07:00] cholecalciferol (vitamin D3) 2,000 unit PO DAILY 90 Days tab 04/11/21 [Rx Last Taken Unknown] COURSE Hospital Course Hospital course: Ms. 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 She had another fall in the ED and the hospitalists were consulted for admission. The The patient is generally weak on exam and appears malnourished. She denies any pain from the fall and said she tripped on her way to the bathroom when she fell at home. She currently lives alone with her dog. In the ED the patient was mildy orthostatic, UA was positive for leukocyte esterase, no bacteria but positive for few yeast, the patient denies dysuria or increased frequency that are typical for her when she gets a UTI. The patient was started on IV fluid and admitted to observation. 04/10-feels well, good appetite, was able to work with PT today. Discontinued IV fluid, vitamin D low so started supplementation, TSH normal. 04/11-accepted to SNF, discharged for rehab. Head: Atraumatic, normal inspection. Eyes: normal appearance, no scleral icterus. Neck: full ROM Respiratory: no respiratory distress. Cardiovascular: normal rate and rhythm, S1, S2. GI/Abdominal: soft, nontender, no guarding. Extremities: full range of motion, nontender. Neurological: CN II-XII intact, intact motor, intact sensation. Psychiatric: impaired memory Skin: warm, normal color Discharge diagnosis: Repeated falls Secondary discharge diagnosis: Diabetes mellitus Vitamin D deficiency Generalized weakness Recurrent UTI Hypothyroid Time Spent with Patient Time attestation: Total time spent providing and/or coordinating discharge services: EXAM Constitutional Vitals: Temp Pulse Resp BP Pulse Ox 98.2 F 78 18 139/71 94 04/11/21 12:00 04/11/21 12:00 04/11/21 12:00 04/11/21 12:04/11/21 12:00 Discharge Data Data Completed and Pending Labs on day of discharge: Preliminary micro results at discharge 04/09/21 03:07 Urine Culture - Preliminary Urine - Clean Void Mid-Stream Discharge Plan Patient/Caregiver Discharge Instructions Activity: as per physical therapy Diet: Consistent Carbohydrate Prescriptions: New cholecalciferol (vitamin D3) 25 mcg (1,000 unit) Tablet 2,000 unit PO DAILY 90 Days RF: 0 Continued levothyroxine 50 MCG tablet 50 mcg PO DAILY RF: 0 magnesium oxide [MagOx] 400 MG tablet 400 mg PO QAM RF: 0 isosorbide mononitrate 10 mg Tablet 10 mg PO QDAY RF: 0 atorvastatin 80 mg Tablet 80 mg PO QDAY RF: 0 Brilinta 90 mg Tablet 90 mg PO BID RF: 0 omeprazole magnesium [Acid Application Architect (omeprazole)] 20 mg Capsule,Delayed Release(Dr/Ec) 20 mg PO QDAY RF: 0 lisinopril 10 mg Tablet 10 mg PO QDAY RF: 0 aspirin 81 mg Tablet,Chewable 81 mg PO DAILY RF: 0 Tresiba FlexTouch U-100 100 unit/mL (3 mL) insulin pen 40 unit SUBCUT DAILY RF: 0 Other Ambulatory Orders: OT Discharge Order (Routine) Location: None Selected Ordered By: Nikhil Huynh Physical Therapy at Discharge - General (Routine) Location: None Selected Ordered By: Nikhil Huynh Follow Up Plan Follow up with: Kavya Farris MD [Primary Care Provider] - Patient Disposition: Xfer SNF Rehab Potential: Fair I certify that the patient requires SNF services: Yes Overall status at discharge: patient is progressing back to baseline Discharge Orders: Discharge Order (Routine); Ordered 04/11/21 Ordered By: Nikhil Huynh QUALITY VTE Deep Vein Thrombosis/Pulmonary Embolism Present on Admission: No
--- NOTE | 2021-04-12 10:50 | EKG ---
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 Measurements Intervals [place] Rate: 68 P: 46 CA: 172 QRS: -54 QRSD: 100 T: 16 QT: 415 QTc: 442 Interpretive Statements Sinus rhythm Left anterior fascicular block Probable anteroseptal infarct, old No prior tracing for comparison. I reviewed and agree with the above findings. Electronically Signed On 04-11-2021 12:02:19 PDT by Derik Mario M.D. /[facility] [id number]
== END 2021-04-11 14:30 ==
LOC: MEDSUR 00:52 → ED 00:52 → MEDSUR 18:36
PROVIDERS: ADMIT Internal Medicine; ATTEND Internal Medicine